=== PATIENT | female | born 1955 | race Two or more races ===

== ENCOUNTER → 2024-06-24 | Outpatient (CLI) | payer OTHER, SELFPAY ==
[2024-06-24 10:54] LABS: Alanine Aminotransferase 59 U/L (10-49); Albumin, Serum 4.9 gm/dL (3.4-4.8); Albumin/Globulin Ratio 1.9 (1.2-2.2); Alkaline Phosphatase 87 U/L (46-116); Anion Gap 8 (7-16); Aspartate Amino Transferase 41 U/L (0-34); BUN/Creatinine Ratio 21 Ratio (12-20); Bilirubin,Total 0.5 mg/dL (0.3-1.2); Blood Urea Nitrogen 19 mg/dL (9-23); Carbon Dioxide 29.4 mMol/L (20.0-31.0); Chloride 105 mMol/L (98-107); Creatinine (Component) 0.9 mg/dL (0.6-1.3); Globulin 2.6 gm/dL (2.3-3.5); Glucose 142 mg/dL (74-106); Osmolality,Calculated 287 (275-295); Potassium 4.1 mMol/L (3.4-5.1); Sodium 142 mMol/L (136-145); Total Protein 7.5 gm/dL (5.7-8.2); eGFR > 60 See Note
[2024-06-24 11:14] LABS: Glucose Estimated Average 154 mg/dL (80-131)
== END | disposition home or self-care (01) ==
LOC: COPL 10:09
PROVIDERS: PCP Family Medicine; Referring Provider Registered Nurse; Visit Provider Registered Nurse
DX: E11.65 Type 2 diabetes mellitus with hyperglycemia (principal)
CPT/HCPCS: 36415; 80053; 83036

== ENCOUNTER → 2024-10-22 | Outpatient (CLI) | payer OTHER, SELFPAY ==
[2024-10-22 09:50] LABS: Basophils % (Auto) 1 % (0-2.5); Eosinophils # (Auto) 0.1 Thou/mm3 (0.0-0.5); Eosinophils % (Auto) 2 % (0-10); Hematocrit 41.7 % (36.0-46.0); Hemoglobin 13.7 g/dL (12.0-16.0); Immature Granulocytes % (Auto) 0 % (0-0); Immature Granulocytes Auto 0.02 Thou/mm3 (0.00-0.00); Lymphocytes # (Auto) 1.5 Thou/mm3 (1.0-4.8); Lymphocytes % (Auto) 31 % (10-50); Mean Corpuscular HGB Conc 32.9 g/dl (31.0-37.0); Mean Corpuscular Hemoglobin 30.8 pg (25.0-35.0); Mean Corpuscular Volume 94 fL (80-100); Monocytes # (Auto) 0.3 Thou/mm3 (0.0-0.8); Monocytes % (Auto) 7 % (0-12); Neutrophils # (Auto) 2.8 Thou/mm3 (1.8-7.7); Neutrophils % (Auto) 60 % (37-80); Nucleated Red Blood Cell % 0 /100 WBC (0); Platelet Count 189 Thou/mm3 (140-440); RDW Standard Deviation 42.6 fL (36.4-46.3); Red Blood Count 4.45 Miln/mm3 (4.00-5.20); White Blood Count 4.8 Thou/mm3 (3.6-11.0)
[2024-10-22 10:00] LABS: Glucose Estimated Average 171 mg/dL (80-131); Hemoglobin A1C 7.6 % Hgb (4.8-6.0)
[2024-10-22 10:14] LABS: Collection Type, Urine Clean Catch
[2024-10-22 10:19] LABS: Vitamin D 25 Hydroxy Total 54.1 ng/mL (7.3-40.2)
[2024-10-22 10:28] LABS: Alanine Aminotransferase 39 U/L (10-49); Albumin, Serum 4.4 gm/dL (3.4-4.8); Albumin/Globulin Ratio 1.8 (1.2-2.2); Alkaline Phosphatase 73 U/L (46-116); Anion Gap 7 (7-16); BUN/Creatinine Ratio 14 Ratio (12-20); Bilirubin,Total 0.5 mg/dL (0.3-1.2); Blood Urea Nitrogen 14 mg/dL (9-23); Calcium 9.5 mg/dL (8.3-10.6); Calcium (Corrected) 9.5 mg/dL (8.5-10.1); Carbon Dioxide 27.7 mMol/L (20.0-31.0); Cardiac Risk Estimate 4.7 RATIO (3.7-5.6); Chloride 106 mMol/L (98-107); Cholesterol 182 mg/dL (132-200); Free T4 (Free Thyroxine) 1.15 ng/dL (0.89-1.76); Globulin 2.4 gm/dL (2.3-3.5); Glucose 180 mg/dL (74-106); HDL Cholesterol 39 mg/dL (40-60); LDL Cholesterol,Calculated 100 mg/dL (0-130); Osmolality,Calculated 286 (275-295); Potassium 4.5 mMol/L (3.4-5.1); Sodium 141 mMol/L (136-145); Thyroid Stimulating Hormone 0.06 uIU/mL (0.55-4.78); Total Protein 6.8 gm/dL (5.7-8.2); Triglycerides 213 mg/dL (30-150); eGFR > 60 See Note
[2024-10-22 10:29] LABS: Aspartate Amino Transferase < 8 U/L (0-34)
[2024-10-22 11:01] LABS: Bacteria,Urine Rare; Bilirubin,Urine Negative (Negative); Blood,Urine Negative (Negative); Clarity,Urine Turbid (Clear/Hazy); Color,Urine Yellow (Lt Yel-Yel); Glucose, Urine Negative (Negative); Ketones,Urine Negative (Negative); Leukocyte Esterase,Urine Positive (Negative); Nitrite,Urine Positive (Negative); Protein,Urine Negative (Neg - Trace); RBC,Urine 7 /hpf (0-3); Squamous Epithelial Cell,Urine 1 /hpf (0-5); Transitional Epi Cells,Urine < 1 /hpf (0-5); Urobilinogen,Urine Negative mg/dL (0.0-1.0); WBC,Urine 142 /hpf (0-5)
[2024-10-22 11:21] LABS: Creatinine MALB Rnd Ur 123 mg/dL (30-125); Microalbumin Creat Ratio 11 mg/gCrea (<30); Microalbumin, Random Urine 13 mg/L (0-300)
[2024-10-22 11:29] LABS: Culture Indicated,Urine Yes
== END | disposition home or self-care (01) ==
LOC: COPL 08:46
PROVIDERS: PCP Registered Nurse; Referring Provider Registered Nurse; Visit Provider Registered Nurse
DX: Z00.00 Encounter for general adult medical examination without abnormal findings (principal); E03.9 Hypothyroidism, unspecified; E11.65 Type 2 diabetes mellitus with hyperglycemia; E78.2 Mixed hyperlipidemia; I10 Essential (primary) hypertension
CPT/HCPCS: 36415; 80053; 80061; 81001; 82043; 82306; 82570; 83036; 84439; 84443; 85025; 87077; 87086; 87186

== ENCOUNTER → 2024-10-31 | Outpatient (CLI) | payer OTHER, SELFPAY ==
--- NOTE | 2024-10-31 09:30 | XR_ITS ---
Examination: Breast ultrasound, unilateral, left complete Date and time of exam: October 31, 2024 0957 hours INDICATIONS: Left breast sonogram March 26, 2024 2:00 glandular tissue 25 mm, probably benign Technique: Real-time barboza scale ultrasonographic imaging performed left breast including all 4 quadrants as well as nipple retroareolar and axillary region. Findings: 2:00 oval mass which may represent glandular tissue IMPRESSION: BI-RADS Category 0: Incomplete: Need additional imaging evaluation Recommend this patient return for repeat left breast sonography with the radiologist in attendance
== END | disposition home or self-care (01) ==
PROVIDERS: PCP Registered Nurse; Referring Provider Registered Nurse; Visit Provider Registered Nurse
DX: R92.8 Other abnormal and inconclusive findings on diagnostic imaging of breast (principal)
CPT/HCPCS: 76641

== ENCOUNTER → 2024-11-19 | Outpatient (CLI) | payer OTHER, SELFPAY ==
--- NOTE | 2024-11-19 13:30 | XR_ITS ---
Examination: Breast ultrasound, unilateral, left complete Date and time of exam: November 19, 2024 1322 hours Comparison October 31, 2024 INDICATIONS: Left breast sonogram October 31, 2024 2:00 nodule versus glandular tissue Technique: Real-time barboza scale ultrasonographic imaging performed left breast including all 4 quadrants as well as nipple retroareolar and axillary region. Findings: 2:00 probable glandular tissue 18 x 8 x 21 mm, multiple benign appearing left axillary lymph nodes IMPRESSION: BI-RADS Category 3: Probably benign findings One additional 6 month left breast sonogram follow-up is needed to document stability of probably benign glandular tissue 2:00 position left breast and to document stability of multiple left axillary lymph nodes
== END | disposition home or self-care (01) ==
LOC: SDIM 12:59
PROVIDERS: PCP Family Medicine; Referring Provider Registered Nurse; Visit Provider Registered Nurse
DX: R92.8 Other abnormal and inconclusive findings on diagnostic imaging of breast (principal)
CPT/HCPCS: 76641

== ENCOUNTER → 2024-12-31 | Outpatient (CLI) | payer OTHER, SELFPAY ==
--- NOTE | 2024-12-31 09:00 | XR_ITS ---
Examination: Ultrasound soft tissue extremity upper back TECHNIQUE: Grayscale sonographic images soft tissue upper back Date and time: December 31, 2024 0839 hours INDICATIONS: Palpable lumps in the upper back FINDINGS: Hyperechoic masses in the upper back 2.6 x 3.0 cm, 1.8 x 2.0 cm IMPRESSION: Findings most consistent with lipomas in the soft tissue upper back, recommend 6 month follow-up ultrasound soft tissue
== END | disposition home or self-care (01) ==
LOC: CDIM 08:22
PROVIDERS: Referring Provider Registered Nurse; Visit Provider Registered Nurse
DX: R22.2 Localized swelling, mass and lump, trunk (principal)
CPT/HCPCS: 76604

== ENCOUNTER 2025-01-06 10:23 | Day surgery (SDC) | payer OTHER, SELFPAY ==
[2025-01-02 16:20] VITALS: BMI 30.8
--- NOTE | 2025-01-03 07:00 | EKG_ITS ---
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
[2025-01-03 11:32] LABS: Basophils % (Auto) 1 % (0-2.5); Eosinophils # (Auto) 0.1 Thou/mm3 (0.0-0.5); Eosinophils % (Auto) 2 % (0-10); Hematocrit 40.8 % (36.0-46.0); Hemoglobin 13.9 g/dL (12.0-16.0); Immature Granulocytes % (Auto) 0 % (0-0); Immature Granulocytes Auto 0.02 Thou/mm3 (0.00-0.00); Lymphocytes # (Auto) 1.6 Thou/mm3 (1.0-4.8); Lymphocytes % (Auto) 26 % (10-50); Mean Corpuscular HGB Conc 34.1 g/dl (31.0-37.0); Mean Corpuscular Volume 91 fL (80-100); Monocytes # (Auto) 0.4 Thou/mm3 (0.0-0.8); Monocytes % (Auto) 6 % (0-12); Neutrophils # (Auto) 4.1 Thou/mm3 (1.8-7.7); Neutrophils % (Auto) 66 % (37-80); Nucleated Red Blood Cell % 0 /100 WBC (0); Platelet Count 199 Thou/mm3 (140-440); RDW Standard Deviation 42.6 fL (36.4-46.3); Red Blood Count 4.49 Miln/mm3 (4.00-5.20); White Blood Count 6.2 Thou/mm3 (3.6-11.0)
[2025-01-03 11:38] LABS: Partial Thromboplastin Time 28.8 Seconds (22.0-36.0); Prothrombin Time 10.6 Seconds (9.0-12.2)
[2025-01-03 11:39] LABS: Anion Gap 13 (7-16); BUN/Creatinine Ratio 19 Ratio (12-20); Blood Urea Nitrogen 19 mg/dL (9-23); Calcium 9.3 mg/dL (8.3-10.6); Chloride 106 mMol/L (98-107); Estimated Creatinine Clearance 52.8 mL/min (>60); Glucose 183 mg/dL (74-106); Osmolality,Calculated 294 (275-295); Potassium 4.1 mMol/L (3.4-5.1); Sodium 144 mMol/L (136-145); eGFR > 60 See Note
[2025-01-06] VITALS (10 sets, daily range): BP systolic 124–159; BP diastolic 79–98; PULSE 82–95; RESP 16–20; TEMP 36.4–36.6; O2SAT 91–98; BMI 30.6
--- NOTE | 2025-01-22 01:34 | ESOP_ITS ---
RE: EYAL KOENIG : 1955 DATE OF OPERATION: 01/06/2025 PROCEDURES PERFORMED: 1. Diagnostic left heart cardiac catheterization, selective coronary angiogram, left ventricular angiogram, CPT 33741. 2. Ultrasound-guided access of right radial artery. 3. Conscious sedation for 30-minute duration. DIAGNOSES: Angina pectoris and abnormal stress test. HISTORY AND INDICATIONS: The patient is a 69-year-old lady with a history of hypertension, has recurrent shortness of breath and chest pain. Cardiac stress test and nuclear scan showed mild ischemia. Hence, coronary angiogram was recommended to assess the patient is a candidate for coronary intervention and revascularization. DESCRIPTION OF PROCEDURE: The patient was brought to the cardiac catheterization laboratory where she was given 2 mg Versed and 50 mcg of fentanyl for conscious sedation. Right radial approach was taken. Right radial artery was cannulated by micropuncture technique. A 5- [place] was introduced. Selective right coronary angiogram performed by FR4 diagnostic catheter. Selective left coronary angiogram performed by TIG-4 diagnostic catheter. Left heart catheterization and left ventricular angiogram was performed by TIG-4 diagnostic catheter. The patient had no complications. She tolerated the procedure well. Radial cocktail was given. TR band was applied. Hemostasis was secured. Cardiac catheterization showed following findings: HEMODYNAMICS: Left ventricular pressure 126/10, aortic pressure 126/80. No gradient across the aortic valve. Left ventricular angiogram showed normal left ventricular wall motion. Ejection fraction is 70%. Coronary angiogram showed following findings: Right coronary artery was large and dominant, giving off PDA and PL branches, appeared normal, posterolateral branches normal. Left coronary system: Left main coronary is normal. Left anterior descending artery showed a lot of tortuosity. First diagonal branch of the left anterior descending artery 1.5 mm vessel showed 70% ostial stenosis. Rest of the vessel showed mildly irregularities. Circumflex artery is nondominant, showed tortuosity, appears normal. SUMMARY OF FINDINGS AND SUGGESTIONS: 1. Vpxp-ge-qxvvsrte coronary artery disease involving diagonal branch of left anterior descending artery, moderate 70% stenosis of small diagonal branch of the LAD. Otherwise, the rest of the coronary artery is widely patent. 2. Nonobstructive precordial coronary arteries. 3. Normal left ventricular function. RECOMMENDATIONS: The patient is reassured of these findings. Recommend to continue medical management. PROGNOSIS: Excellent. DT: 00:20:19 TT: 01:33:00 Ref: [id number] - TID: [id number]
== END 2025-01-06 16:30 | disposition home or self-care (01) ==
PROVIDERS: PCP Family Medicine; Referring Provider Internal Medicine Cardiovascular Disease; Visit Provider Internal Medicine Cardiovascular Disease
PROC: (CPT 93458; principal; 2025-01-06 11:30)
DX: I25.118 Atherosclerotic heart disease of native coronary artery with other forms of angina pectoris (principal); Z01.810 Encounter for preprocedural cardiovascular examination; I34.0 Nonrheumatic mitral (valve) insufficiency; I10 Essential (primary) hypertension; E11.9 Type 2 diabetes mellitus without complications; E78.00 Pure hypercholesterolemia, unspecified
CPT/HCPCS: 93458; 36415; 80048; 85025; 85610; 85730; 93005; 99152; A4649; C1887; C1894; J0171; J0461; J1200; J1643; J1720; J2250; J2310; J2371; J2405; J3010; J3490; J1920; J2305

== ENCOUNTER → 2025-03-25 | Outpatient (CLI) | payer OTHER, SELFPAY ==
[2025-03-25 11:09] LABS: Glucose Estimated Average 154 mg/dL (80-131); Hemoglobin A1C 7.0 % Hgb (4.8-6.0)
[2025-03-25 11:10] LABS: Alanine Aminotransferase 60 U/L (10-49); Albumin, Serum 4.9 gm/dL (3.4-4.8); Albumin/Globulin Ratio 1.8 (1.2-2.2); Alkaline Phosphatase 84 U/L (46-116); Anion Gap 10 (7-16); Aspartate Amino Transferase 42 U/L (0-34); BUN/Creatinine Ratio 15 Ratio (12-20); Bilirubin,Total 0.6 mg/dL (0.3-1.2); Blood Urea Nitrogen 15 mg/dL (9-23); Calcium 10.1 mg/dL (8.3-10.6); Calcium (Corrected) 10.1 mg/dL (8.5-10.1); Carbon Dioxide 25.3 mMol/L (20.0-31.0); Chloride 106 mMol/L (98-107); Creatinine (Component) 1.0 mg/dL (0.6-1.3); Globulin 2.7 gm/dL (2.3-3.5); Glucose 132 mg/dL (74-106); Osmolality,Calculated 284 (275-295); Potassium 4.3 mMol/L (3.4-5.1); Sodium 141 mMol/L (136-145); Total Protein 7.6 gm/dL (5.7-8.2); eGFR > 60 See Note
== END | disposition home or self-care (01) ==
LOC: COPL 10:11
PROVIDERS: PCP Family Medicine; Referring Provider Registered Nurse; Visit Provider Registered Nurse
DX: E11.65 Type 2 diabetes mellitus with hyperglycemia (principal)
CPT/HCPCS: 36415; 80053; 83036

== ENCOUNTER → 2025-04-15 | Outpatient (CLI) | payer OTHER, SELFPAY ==
[2025-04-18 07:20] LABS: Fecal Globin Result NOT DETECTED (NOT DETECTED)
== END | disposition home or self-care (01) ==
LOC: SLDO 11:49
PROVIDERS: Referring Provider Registered Nurse; Visit Provider Registered Nurse
DX: Z12.11 Encounter for screening for malignant neoplasm of colon (principal)
CPT/HCPCS: 82274; G0328

== ENCOUNTER → 2025-06-02 | Outpatient (CLI) | payer OTHER, SELFPAY ==
--- NOTE | 2025-06-02 15:30 | XR_ITS ---
Examination: CT abdomen and pelvis without contrast. Coronal 3-D reconstructions. Sagittal 2-D reconstructions. Date and time of exam: June 02, 2025, 1520 hours INDICATIONS: Diagnosis umbilical hernia without obstruction or gangrene, abdominal pain enlarging hernia 1 year CTDI: vol (mGy): 8.40 DLP: (mGycm): 490 Technique: Axial images of the abdomen have been obtained, 3 mm slice thickness Intravenous contrast material has not been administered. Low dose protocols were performed. One or more of the following dose reduction techniques were used; automated exposure control, adjustment of the mA and/or KV according to patient size, use of iterative reconstruction technique. Findings: No focal liver or splenic lesion Absent gallbladder No pancreatic or adrenal mass Moderate renal scar formation No renal or ureteral calculi 10 mm fat-containing umbilical hernia Colonic diverticulosis, no diverticulitis Urinary bladder intact Bilateral fat-containing femoral hernias Prominent osteopenia IMPRESSION: 10 mm fat-containing umbilical hernia Bilateral fat-containing femoral hernias No bowel present in these hernia defects
== END | disposition home or self-care (01) ==
PROVIDERS: Referring Provider Registered Nurse; Visit Provider Registered Nurse
DX: K42.9 Umbilical hernia without obstruction or gangrene (principal); K41.20 Bilateral femoral hernia, without obstruction or gangrene, not specified as recurrent
CPT/HCPCS: 74176